=== PATIENT | male | born 1965 | race Caucasian/White ===

== ENCOUNTER → 2018-04-08 | Day surgery (SDC) | payer OTHER ==
[~2018-04-08] MED LIST: ALBUTEROL SULFATE 2.5 MG/3 ML NEBU. NEB PRN; ATROPINE 0.5 MG/5 ML DISP.SYRIN. IV PRN; CRESTOR5 MG PO; IV RINGERS SOLUTION,LACTATED 1,000 ML IV SCH; LEVO125T5 PO; LIDOCAINE 2% PF Vial for OR 5 ML VIAL. ONE; LOSA1TAB19 PO; NALOXONE 0.4 MG/ML VIAL. IV PRN; ONDANSETRON PF 4 MG/2 ML VIAL. IV PRN; PANT40TA3 PO; PREG300C PO; PROPOFOL 10,000 MCG/ML (20ML) VIAL IV ONE; PROPOFOL 40 ML IV ONE; TRAM50TA PO
[2018-04-08 11:59] VITALS: BP 122/62
== END | disposition home or self-care (01) ==
LOC: SURG 10:23
PROVIDERS: ATTEND Surgery
DX: Z12.11 Encounter for screening for malignant neoplasm of colon (principal); K57.30 Diverticulosis of large intestine without perforation or abscess without bleeding; K63.89 Other specified diseases of intestine; I10 Essential (primary) hypertension; K21.9 Gastro-esophageal reflux disease without esophagitis; Z80.8 Family history of malignant neoplasm of other organs or systems; Z88.8 Allergy status to other drugs, medicaments and biological substances
CPT/HCPCS: 45378; J2704; J7120; J2001